=== PATIENT | female | born 1945 | race Caucasian/White ===

== ENCOUNTER 2017-04-25 19:24 | Emergency (ER) | payer MEDICARE, OTHER ==
[2017-04-25 19:42] VITALS: BP 141/78
[2017-04-25 20:00] LABS: BILIRUBIN,URINE NEGATIVE (NEGATIVE)
[2017-04-25 20:08] LABS: UA w/ MICROSCOPIC CHARGE YES; UR CULTURE IF IND INDICATED; WBC,URINE >25 /HPF (0-5)
--- NOTE | 2017-04-25 21:07 | ED Physician Documentation ---
PD HPI FEMALE - Stated complaint Stated Complaint: FREQ URINATION - Chief complaint Chief Complaint: Abd Pain - History obtained from History obtained from: Patient - History of Present Illness Timing - onset: Yesterday Timing - duration: Days (08/28) Timing - details: Gradual onset, Still present Associated symptoms: Dysuria, Urinary frequency. 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 - Present Medications Home Medications: Ambulatory Orders Medication Instructions Recorded Confirmed Aspirin Chewable [[facility] [place]ami[place] 1 tab PO DAILY 04/25/17 04/25/17 Aspirin] Escitalopram [Lexapro] 10 mg PO DAILY 04/25/17 04/25/17 Lisinopril 10 mg PO DAILY 04/25/17 04/25/17 Metoprolol Tartrate 1 tab PO DAILY 04/25/17 04/25/17 Phenazopyridine [Pyridium] 100 mg PO TID PRN #10 tablet 04/25/17 Rosuvastatin Calcium 1 tab PO DAILY 04/25/17 04/25/17 Sulfamethox/Trimeth 800/160 1 each PO BID #14 tablet 04/25/17 [Bactrim Ds 800/160] - Allergies Allergies/Adverse Reactions: Allergies Allergy/AdvReac Type Severity Reaction Status Date / Time codeine Allergy Itching Verified 04/25/17 19:39 - Social History Does the pt smoke?: No Smoking Status: Never smoker Does the pt drink ETOH?: No Does the pt have substance abuse?: No - Immunizations Immunizations are current?: Yes - POLST Patient has POLST: No PD ED PE NORMAL - Vitals Vital signs reviewed: Yes - General General: Alert and oriented X 3, No acute distress, Well developed/nourished - Abdomen Abdomen: Soft, Non tender - Back Back: No CVA TTP - Derm Derm: Normal color, Warm and dry - Neuro Neuro: Alert and oriented X 3, No motor deficit, Normal speech Results - Vitals Vitals: Oxygen O2 Source Room air - Labs Labs: Microbiology 04/25/17 19:50 Urine Culture - Preliminary Urine,Clean Catch Laboratory Tests 04/25/17 19:50 Urine Color YELLOW Urine Clarity SL. CLOUDY Urine pH 6.0 Ur Specific [place] 1.015 Urine Protein TRACE Urine Glucose (UA) NEGATIVE Urine Ketones NEGATIVE Urine Occult Blood MODERATE H Urine Nitrite NEGATIVE Urine Bilirubin NEGATIVE Urine Urobilinogen 0.2 (NORMAL) Ur Leukocyte Esterase MODERATE H Urine RBC 6-10 H Urine WBC >25 H Ur Squamous Epith Cells FEW Squamous Urine Bacteria Few Ur Microscopic Review INDICATED Urine Culture Comments INDICATED Departure - Departure Disposition: Home, Self Care Clinical Impression: Cystitis Condition: Stable Record reviewed to determine appropriate education?: Yes Instructions: ED UTI Cystitis Female Prescriptions: Sulfamethox/Trimeth 800/160 [Bactrim Ds 800/160] 1 each PO BID #14 tablet Phenazopyridine [Pyridium] 100 mg PO TID PRN #10 tablet PRN Reason: Pain Comments: Drink lots of fluids. Phenazopyridine if needed for discomfort of urination while the infection is clearing. Bactrim twice daily for a week for the infection. Recheck if not improving over the next few days. Discharge Date/Time: 04/25/17 21:25
[2017-04-25] MEDS ORDERED: SULFAMETH/TRIMETH DS 800/160 MG TABLET PO STA (21:16)
[2017-04-25] MEDS ORDERED: PHENAZOPYRIDINE 100 MG TABLET PO STA (21:16)
[2017-04-25] MEDS ORDERED: SULFAMETH/TRIMETH DS 800/160 MG TABLET PO ONE (21:21)
[2017-04-25] MEDS ORDERED: PHENAZOPYRIDINE 100 MG TABLET PO ONE (21:21)
== END 2017-04-25 21:25 | disposition home or self-care (01) ==
LOC: ED 19:24
DX: N30.00 Acute cystitis without hematuria (principal); I10 Essential (primary) hypertension; I25.2 Old myocardial infarction; Z79.82 Long term (current) use of aspirin
CPT/HCPCS: 81001; 87077; 87086; 87181; 99283; A9270; 81003